=== PATIENT | male | born 1940 | race Caucasian/White ===

== ENCOUNTER 2018-12-22 20:35 | Emergency (ER) | payer MEDICARE, OTHER ==
--- NOTE | 2018-12-22 21:23 | ED Physician Documentation ---
PD HPI Fall - Stated complaint Stated Complaint: GLF/LOW BACK PX - Chief complaint Chief Complaint: Trauma Ch/Bk - History obtained from History obtained from: Patient, Family - History of Present Illness Mechanism of injury: Slipped Fall distance: Standing position Where injury occurred: Home Timing - onset: Enter time (0900), Today Injury(ies) location: Other (left ischial tuberosity) Quality of pain: Pain, Aching. No: Throbbing Associated symptoms: No: LOC, AMS, Amnesia Symptoms improve with: Rest Worsens with: Movement, Palpation Contributing factors: Anticoagulated (on plavix) Similar symptoms before: Has not had sx before Recently seen: Not recently seen - Additional information Additional information: 70-year-old male who is had a right hip replacement and a lumbar surgery with cage in place was at home today in his usual state of health when he was defrosting his freezer he slipped on some water in his slippers and fell onto his buttocks. He landed on the left side and has pain over the left initial tuberosity. He complains of continuous pain and pain with weightbearing. He is able to move the leg through a range of motion without pain but if he is bearing weight he has pain. He is walking with a walking stick and it takes him some time to get going. He has been taking oxycodone without relief. Review of Systems Constitutional: denies: Fever, Chills Eyes: denies: Decreased vision Ears: denies: Ear pain Nose: denies: Congestion Throat: denies: Sore throat Cardiac: denies: Chest pain / pressure, Palpitations Respiratory: denies: Dyspnea, Cough GI: denies: Abdominal Pain, Nausea, Vomiting : denies: Dysuria, Frequency Skin: denies: Rash Musculoskeletal: reports: Pain with weight bearing, Other (pain to the ischial tuberosity). denies: Neck pain, Back pain, Extremity swelling, Joint swelling Neurologic: denies: Generalized weakness, Focal weakness, Numbness, Difficulty speaking, Headache, Head injury, LOC PD PAST MEDICAL HISTORY - Past Medical History Past Medical History: Yes Cardiovascular: High cholesterol, Other Neuro: Tremors : Benign prostate hypertrophy - Past Surgical History Past Surgical History: Yes General: Hiatal hernia repair Ortho: Hip replacement, Shoulder arthroplasty, Spine surgery, Other Cardiovascular: Valve replacement HEENT: Other - Present Medications Home Medications: Ambulatory Orders Medication Instructions Recorded Confirmed Clopidogrel [Plavix] 1 tab PO DAILY 12/22/18 12/22/18 Oxycodone HCl/Acetaminophen 1 - 2 each PO Q6H PRN #14 tablet 12/22/18 [Percocet 5-325 mg Tablet] Propranolol [Inderal] 0 mg PO 12/22/18 Tamsulosin [Flomax] 0.4 mg PO DAILY 12/22/18 12/22/18 - Allergies Allergies/Adverse Reactions: Allergies Allergy/AdvReac Type Severity Reaction Status Date / Time No Known Drug Allergies Allergy Verified 12/22/18 20:43 - Social History Does the pt smoke?: No Smoking Status: Never smoker Does the pt drink ETOH?: No Does the pt have substance abuse?: No - Immunizations Immunizations are current?: Yes PD ED PE NORMAL - Vitals Vital signs reviewed: Yes (hypertensive mild ) - General General: Alert and oriented X 3, No acute distress, Well developed/nourished - HEENT HEENT: Atraumatic, PERRL, EOMI - Neck Neck: Supple, no meningeal sign - Cardiac Cardiac: RRR, No murmur - Respiratory Respiratory: No respiratory distress, Clear bilaterally - Abdomen Abdomen: Soft - Back Back: No CVA TTP, No spinal TTP, Other (There is a well healed lumbar surgical scar that is non-tender ) - Derm Derm: Normal color, Warm and dry, No rash - Extremities Extremities: No deformity, No edema, Other (There is specific tenderness to the ischial tuberosity on the lft side and the patient is able to run his hip through a ROM with pain centered on the tuberosity and not the trochanter. 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 Right hip prosthesis. No acute fracture dislocation seen. 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
--- NOTE | 2018-12-22 22:24 | XRAY Report ---
Reason: Fall ischial pain Procedure Date: 12/22/2018 Accession Number: [id number] / [id number] Procedure: XR - Hip w/Pelvis 2-3V LT CPT Code: FULL RESULT: EXAM: LEFT HIP AND PELVIS RADIOGRAPHY EXAM DATE: 12/22/2018 09:50 PM. CLINICAL HISTORY: Fall ischial pain. COMPARISON: XR HIP UNILAT MIN 2 VIEW 09/07/2009 10:01 AM. TECHNIQUE: 1 view each of the pelvis and hip. FINDINGS: Bones: Right total hip prosthesis. No fracture seen. Posterior metallic fusion at L3-L4. Joints: No dislocation seen. 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 Degenerative changes in the lower lumbar spine. Soft Tissues: Right inguinal hernia repair. IMPRESSION: 1. Right hip prosthesis. No acute fracture or dislocation seen. 2. 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 [facility]
[2018-12-22 23:05] VITALS: BP 135/81
== END 2018-12-22 23:13 | disposition home or self-care (01) ==
LOC: ED 20:35
DX: R10.2 Pelvic and perineal pain (principal); M54.5 Low back pain; W01.0XXA Fall on same level from slipping, tripping and stumbling without subsequent striking against object, initial encounter; Y93.E9 Activity, other interior property and clothing maintenance; Y92.009 Unspecified place in unspecified non-institutional (private) residence as the place of occurrence of the external cause; M16.12 Unilateral primary osteoarthritis, left hip; Z96.641 Presence of right artificial hip joint; Z98.1 Arthrodesis status
CPT/HCPCS: 36415; 99283; 99284

== ENCOUNTER 2022-09-05 09:15 | Outpatient (CLI) | payer MEDICARE, OTHER | END 2022-09-05 09:16 | disposition home or self-care (01) | LOC: DI 09:15 | PROVIDERS: ATTEND Internal Medicine Cardiovascular Disease | DX: Z95.2 Presence of prosthetic heart valve (principal); I51.7 Cardiomegaly; I34.0 Nonrheumatic mitral (valve) insufficiency | CPT/HCPCS: 93306 ==